=== PATIENT | female | born 1965 | race Caucasian/White ===

== ENCOUNTER 2019-07-30 08:15 | Inpatient (IN) | payer BC ==
[2019-07-30] VITALS (14 sets, daily range): BP systolic 124–155; BP diastolic 70–96
[~2019-07-30] VITALS: Ht 165.1 cm; Wt 58.1 kg
--- NOTE | 2019-07-30 08:26 | PHYS DOC ---
Past History Past Medical History: Depression, High Cholesterol, Hypertension Additional Past Medical Histor: Chronic back pain, Scoliosis, hx of Suicide attempt in Past Medical History Limited due to altered mental status. Past Surgical History: Cholecystectomy, Hysterectomy Additional Past Surgical Histo: Breast augmentation, nerve ablations in back Past Surgical History Limited due to altered mental status. Smoking: Cigarettes (socially), Less than 1pk/day Alcohol Use: Occasionally (socially) Drug Use: None Social History Limited due to altered mental status. Adult General Chief Complaint Chief Complaint: Altered mental status/Overdose HPI HPI 53-year-old female presents with her with report of altered mental status this morning. Spouse reports waking this AM and finding patient was not in bed. Reports finding patient out in the garage "passed out" in the passenger side of his vehicle. Reports she was difficult to arouse and was altered. Reports finding empty Flexeril bottle on kitchen counter and another one in the living room. Patient has chronic back pain and takes "morphine", "Vicodin", and Flexeril for her back. Empty prescription bottles are from 05/06/19 and 07/28/19 and both are 10 mg Flexeril tablets for which patient was prescribed 90 tablets and can take one tablet 3 times daily as needed. Spouse denies finding the other medications or any other medications that patient might have taken. Reports she was drinking "tequila shots" last night. Spouse reports last seen normal at approximately 2300 last night. Reports he did receive a text from his mother in law around midnight last night reporting some concern that "something was wrong" , but he didn't see the text until this AM. Spouse reports patient has a history of depression and a prior suicide attempt in the . Reports patient has seemed more depressed recently and has some increased life stressors. Reports recently moved to [place] approximately 2 years ago. Patient does not work and doesn't really have any friends out here. Spouse reports he is gone 70% of the time for work. Spouse does report hx of recent ablation therapy to patient's back with pain specialist an [place] on . He reports that is who prescribes her medications. History of present illness limited due to patient's altered mental status. Majority of HPI and history obtained from spouse. NO prior records per [facility] review for comparison. Review of Systems Review of Systems Constitutional: Denies fever or chills GI: Denies vomiting Review of systems limited due to patient's altered mental status Current Medications Current Medications Current Medications Medications (Trade) Dose Ordered Sig/Christina Start Time Stop Time Status Last Admin Dose Admin Sodium Chloride 1,000 ml @ 1,000 mls/hr 1X ONCE 07/30/19 08:30 07/30/19 09:29 UNV Physical Exam Physical Exam Constitutional: Well developed, well nourished, confused, non-toxic appearance HENT: Normocephalic, atraumatic, oropharynx moist Eyes: PERRL, EOMI, conjunctiva normal, no discharge, horizontal nystagmus noted Neck: Normal range of motion, no tenderness, supple Cardiovascular: Heart rate normal, regular rhythm Lungs & Thorax: Bilateral breath sounds clear to auscultation, no wheezing Abdomen: Soft, no tenderness Skin: Warm, dry, no erythema, no rash, old ecchymosis noted to bilateral AC regions Extremities: No tenderness, ROM intact, no edema, moving all extremities Neurologic: Obtunded, GCS 11 (eye4 verbal2 motor5), no focal deficits noted Psychologic: Unable to fully obtain, judgement abnormal EKG EKG @0821 NSR at 98bpm, NO ST elevation, QRS 76ms, QT/QTc 394/505ms Radiology/Procedures Radiology/Procedures [] Course & Med Decision Making Course & Med Decision Making Pertinent Lab studies reviewed. (See chart for details) Patient presents with altered mental status and history of possibly taking Flexeril 10 mg tablets which were recently filled on 07/28/2019 90 tabs. Another empty bottle of Flexeril also found but was filled in April 2019. GCS 11. EKG obtained. Labs obtained and posted to chart. IV fluid hydration given. Poison control notified and recommend supportive care and monitoring for next 24 hours. Patient requiring admission for further evaluation and treatment. Discussed with Dr. Dawson (hospitalist) who is in agreement with admission. Discussed findings and plan with spouse, who acknowledges understanding and agreement. Dragon Disclaimer Dragon Disclaimer This electronic medical record was generated, in whole or in part, using a voice recognition dictation system. Departure Departure: Impression: Primary Impression: Suicide attempt Additional Impression: Overdose Disposition: ADMITTED INPATIENT Admitting Physician: Ara Dawson Condition: GUARDED Critical Care Time Critical care time was 30 minutes which includes time at bedside, spent in discussion of patient's care with specialists and/or family members, with interpretation of laboratory and/or radiological studies and is exclusive of procedures. Problem Qualifiers Additional Impression: Overdose Encounter type: initial encounter Injury intent: intentional self-harm Qualified Codes: T50.902A - Poisoning by unspecified drugs, medicaments and biological substances, intentional self-harm, initial encounter RAFA HAYES DO Jul 30, 2019 08:25
[2019-07-30] MEDS ORDERED: IV NORMAL SALINE 1,000ML 1,000 ML IV ONE (08:30)
[2019-07-30 08:47] LABS: BASO % 0 % (0-3); EOS % 0 % (0-3); HEMOGLOBIN 14.3 g/dL (12.0-15.5); LYMPH # 1.1 x10^3/uL (1.0-4.8); LYMPH % 15 % (24-48); MEAN CORPUSCULAR HEMOGLOBIN 32 pg (25-35); MEAN CORPUSCULAR HGB CONC 34 g/dL (31-37); MEAN CORPUSCULAR VOLUME 92 fL (79-100); MONO # 0.4 x10^3/uL (0.0-1.1); MONO % 5 % (0-9); NEUT % 80 % (31-73); PLATELET COUNT 299 x10^3/uL (140-400); RED BLOOD COUNT 4.55 x10^6/uL (3.50-5.40); RED CELL DISTRIBUTION WIDTH 13.5 % (11.5-14.5); WHITE BLOOD COUNT 7.6 x10^3/uL (4.0-11.0)
[2019-07-30 09:08] LABS: ALBUMIN 4.4 g/dL (3.4-5.0); ALBUMIN/GLOBULIN RATIO 1.1 (1.0-1.7); CALCIUM 9.5 mg/dL (8.5-10.1); CREATININE 0.8 mg/dL (0.6-1.0); GFR 75.6; MAGNESIUM 2.2 mg/dL (1.8-2.4); TOTAL BILIRUBIN 0.3 mg/dL (0.2-1.0); TOTAL PROTEIN 8.5 g/dL (6.4-8.2)
[2019-07-30 09:09] LABS: ACETAMIN < 2.0 mcg/mL (10-30); ETHANOL < 10 mg/dL (0-10); SALIC 2.4 mg/dL (2.8-20.0)
[2019-07-30 09:20] LABS: BILIRUBIN,URINE NEG (NEG); CLARITY,URINE HAZY; COLOR,URINE YELLOW; GLUCOSE,URINE NEG (NEG); UROBILINOGEN,URINE 0.2 mg/dL (0.2 mg/dL)
[2019-07-30 09:21] LABS: AMORPHOUS SEDIMENT,UR PRESENT /HPF; BACTERIA,URINE 0 /HPF (0-FEW); NITRITE,URINE NEG (NEG); RBC,URINE 0 /HPF (0-2); SQUAMOUS EPITHELIAL CELL,UR OCC /LPF; WBC,URINE 0 /HPF (0-4)
[2019-07-30 09:26] LABS: BARBITURATES NEG (NEG); BENZODIAZEPINES NEG (NEG); CANNABINOIDS NEG (NEG); COCAINE NEG (NEG); METHADONE NEG (NEG); OPIATES POS (NEG); PHENCYCLIDINE NEG (NEG)
[2019-07-30 09:29] LABS: AMPHETAMINE/METHAMPHETAMINE NEG (NEG)
[2019-07-30] MEDS ORDERED: ONDANSETRON PF 4 MG/2 ML VIAL. IV PRN (09:45)
[2019-07-30] MEDS ORDERED: MVI, ADULT NO.4 WITH VIT K 10 ML, FOLIC ACID SYRINGE for ER 1 MG, THIAMINE INJ 100 MG i... IV ONE ×4 (10:00)
[2019-07-30] MEDS ORDERED: CYCL-331 PO (11:39)
[2019-07-30] MEDS ORDERED: HYDR-52 PO (11:39)
[2019-07-30] MEDS ORDERED: MORP-16 PO (11:39)
[2019-07-30] MEDS ORDERED: MELO15TA23 PO (11:39)
[2019-07-30] MEDS ORDERED: DULO60CA98 PO (11:39)
[2019-07-30] MEDS ORDERED: BUPR150T11 PO (11:39)
[2019-07-30] MEDS ORDERED: MAGNESIUM SULFATE 2GM 50 ML IV ONE (14:00)
[2019-07-30] MEDS: IV NORMAL SALINE 1,000ML 1,000 ML IV SCH ×2 (14:08→20:25)
--- NOTE | 2019-07-30 14:49 | HP ---
ADMIT DATE: 07/30/2019 HISTORY OF PRESENT ILLNESS: The patient is a 53-year-old female patient who presented to the Emergency Room with reports of altered mental status this morning. Her reported waking this morning and finding the patient was not in bed. He found her in the garage, passed out in the passenger side of his vehicle. She was difficult to arouse and was altered. He found also an empty Flexeril bottle on kitchen counter and another one in the living room. The patient is known to have chronic back pain and takes morphine, Vicodin, and Flexeril for her back. Empty prescription bottles are from 05/06/2019 and 07/28/2019, and both are 10 mg Flexeril tablets for which the patient was prescribed 90 tablets and can take 1 tablet 3 times a day as needed. The denied finding any other medications, patient that might have taken. He said she was drinking also tequila shots last night. She was last seen as normal at around 2300 last night. The reported that he did receive a text from his [id number] around midnight last night reporting some concern that something was wrong, but he did not see the text until this morning. The reports the patient has a history of depression with prior suicidal attempt in 1989. He reports the patient seemed more depressed recently and has some increased life stressors. She recently moved to [place] approximately 2 years ago. She does not work and does not really have any friends out here. He stated that he has gone 70% of time for work. She apparently has recently had an ablation therapy for the patient's back with pain specialist in [place]. On , she was evaluated in the Emergency Room, apparently was obtunded with a Diamond coma scale of 11 with no obvious focal deficit and was admitted to ICU for close observation. Her initial EKG showed that she was in sinus rhythm with a heart rate of 98 per minute, no ST segment elevation. Her QRS complex was 76 milliseconds, QT interval was 505 millisecond. Her chest x-ray and her lab work were unremarkable. Urinalysis was unremarkable and toxic screen was positive for opiates as well as alcohol, although the blood alcohol level was less than 10 and was admitted with suicidal attempt with an overdose of Flexeril and perhaps morphine as well as alcohol. We did contact the Poison Control Center who recommended treating her with bicarb if her corrected QT interval is more than 500 milliseconds and to start bicarb drip, if the QRS complex is more than 100 milliseconds. PAST MEDICAL HISTORY: Significant for depression, hyperlipidemia, hypertension, chronic back pain, scoliosis, apparently has a history of suicide attempt in 1989. PAST SURGICAL HISTORY: Significant for cholecystectomy, hysterectomy, breast augmentation surgery, as well as nerve ablation of the back recently. ALLERGIES: She is allergic to GABAPENTIN. MEDICATIONS: She is currently on cyclobenzaprine 10 mg 3 times a day, meloxicam 15 mg daily, hydrocodone/APAP 10/325 one tablet every 6 hours. She is also on morphine sulfate extended release 30 mg twice a day and Wellbutrin 150 mg once a day and duloxetine 60 mg twice a day. FAMILY HISTORY: Unremarkable. SOCIAL HISTORY: She is and lives with her . She apparently smokes 1 pack a day and drinks alcohol occasionally and does not use any drugs. REVIEW OF SYSTEMS: Obviously unobtainable. PHYSICAL EXAMINATION: GENERAL: On arrival to the Emergency Room, the patient was obtunded, does open her eyes and moves limbs spontaneously without any obvious lateralizing sign. There was no pallor, jaundice, or cyanosis. No lymphadenopathy, no thyromegaly. No jugular venous distention. No lower limb edema. VITAL SIGNS: Her heart rate was 95, blood pressure was 142/89, temperature was 97.4, respiratory rate was 15, and oxygen saturation was 100%. HEAD, EYES, EARS, NOSE, AND THROAT: Normocephalic, atraumatic. NECK: Supple. HEART: Showed normal first and second heart sounds. No gallop or murmur. CHEST: Clear to auscultation. No crepitation or rhonchi. ABDOMEN: Distended, soft, nontender. NEUROLOGIC: She is obtunded, but all her cranial nerves seem to be grossly intact. EXTREMITIES: She moves extremities spontaneously; however, she is very restless, agitated, and required wrist restraints. LABORATORY DATA: Her lab work this morning showed a white cell count of 7600, hemoglobin 14, hematocrit 42, MCV 92, and platelet count of 299,000, with normal manual differential. Her serum sodium is 142, potassium 4, chloride 103, bicarbonate 28, anion gap of 11, BUN 20, creatinine 0.8, estimated GFR was 76 mL per minute. Her glucose was 113, lactic acid was 1. Calcium was 9.5, magnesium was 2.2. Total bilirubin, AST, ALT, alkaline phosphatase were normal. Her ammonia was less than 10 and CK was 95. Total protein was 8.5 and albumin was 4.4. Her prothrombin time, INR, and aPTT were normal. Urinalysis was unremarkable and toxic screen was positive for opiates as well as alcohol. ASSESSMENT AND PLAN: So, in summary, this is a 53-year-old, female patient who was admitted with suicidal attempt and overdose of cyclobenzaprine. She is also on morphine and has been drinking tequila shots. She has multiple other medical problems including hypertension, hyperlipidemia, depression, and chronic back pain. The plan is to continue with IV fluid, continue with perhaps alcohol withdrawal protocol. I did speak with the Poison Control Center and their recommendation was to treat her with magnesium sulfate 2 grams IV if the QT interval is more than 500 and do bicarbonate drip if the QRS complex was more than 100 milliseconds. Obviously when she wakes up, we will consult Dr. Robles to see her and she probably needs some inpatient psychiatric treatment. SHELLY FLORES MD DR: NBA/bradley JOB#: [id number] / [id number]
[2019-07-30] MEDS ORDERED: PHYSOSTIGMINE 2 MG/2 ML AMPUL. IV ONE (18:15)
[2019-07-30] MEDS ORDERED: PHYSOSTIGMINE 1 MG/ML IV ONE (18:15)
[2019-07-30 18:16] LABS: BASO % 0 % (0-3); EOS % 0 % (0-3); HEMATOCRIT 37.6 % (36.0-47.0); HEMOGLOBIN 12.2 g/dL (12.0-15.5); LYMPH % 9 % (24-48); MEAN CORPUSCULAR HEMOGLOBIN 30 pg (25-35); MEAN CORPUSCULAR HGB CONC 33 g/dL (31-37); MEAN CORPUSCULAR VOLUME 93 fL (79-100); MONO # 0.7 x10^3/uL (0.0-1.1); MONO % 5 % (0-9); NEUT # 10.4 x10^3uL (1.8-7.7); NEUT % 86 % (31-73); PLATELET COUNT 268 x10^3/uL (140-400); RED BLOOD COUNT 4.05 x10^6/uL (3.50-5.40); RED CELL DISTRIBUTION WIDTH 13.4 % (11.5-14.5); WHITE BLOOD COUNT 12.2 x10^3/uL (4.0-11.0)
[2019-07-30 18:35] LABS: ALBUMIN 3.8 g/dL (3.4-5.0); ALBUMIN/GLOBULIN RATIO 1.1 (1.0-1.7); CALCIUM 8.4 mg/dL (8.5-10.1); CREATININE 0.8 mg/dL (0.6-1.0); GFR 75.6; MAGNESIUM 2.7 mg/dL (1.8-2.4); POTASSIUM 3.7 mmol/L (3.5-5.1); TOTAL BILIRUBIN 0.4 mg/dL (0.2-1.0); TOTAL PROTEIN 7.2 g/dL (6.4-8.2)
--- NOTE | 2019-07-30 20:33 | EKG ---
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
--- NOTE | 2019-07-30 20:50 | EKG ---
[address] [address] Test Date: 2019-07-30 Test Time: 20:43:13 Pat Name: ABBY GREEN Department: Room: [facility]02 1 Gender: F Quality Liaison: : 1965 Requested By: SHELLY FLORES Order Number: [id number] Reading MD: Measurements Intervals [place] Rate: 105 P: 76 TN: 152 QRS: -5 QRSD: 78 T: 234 QT: 346 QTc: 461 Interpretive Statements SINUS TACHYCARDIA LEFTWARD AXIS OTHERWISE NORMAL ECG RI6.02 No previous ECG available for comparison
--- NOTE | 2019-07-30 22:53 | PDOC ---
Exam Note: David Note: Please also refer to the separate dictated note~for this date of service dictated separately.~Patient seen individually. Discussed the patient with Nursing staff reviewed the chart.~Reviewed interim history and current functioning. Reviewed vital signs,~Labs/ Radiology~and current medications noted below. Continue current treatment with the changes noted in the dictated addendum note Assessment: Vital Signs/I&O: Vital Signs Date Time Temp Pulse Resp B/P (MAP) Pulse Ox O2 Delivery O2 Flow Rate FiO2 07/30/19 22:14 99 20 07/30/19 22:11 98.9 142/90 (107) 98 Room Air Labs: Laboratory Tests Test 07/30/19 08:30 07/30/19 18:00 07/30/19 18:04 White Blood Count 7.6 x10^3/uL (4.0-11.0) 12.2 x10^3/uL (4.0-11.0) H Red Blood Count 4.55 x10^6/uL (3.50-5.40) 4.05 x10^6/uL (3.50-5.40) Hemoglobin 14.3 g/dL (12.0-15.5) 12.2 g/dL (12.0-15.5) Hematocrit 42.0 % (36.0-47.0) 37.6 % (36.0-47.0) Mean Corpuscular Volume 92 fL (79-100) 93 fL (79-100) Mean Corpuscular Hemoglobin 32 pg (25-35) 30 pg (25-35) Mean Corpuscular Hemoglobin Concent 34 g/dL (31-37) 33 g/dL (31-37) Red Cell Distribution Width 13.5 % (11.5-14.5) 13.4 % (11.5-14.5) Platelet Count 299 x10^3/uL (140-400) 268 x10^3/uL (140-400) Neutrophils (%) (Auto) 80 % (31-73) H 86 % (31-73) H Lymphocytes (%) (Auto) 15 % (24-48) L 9 % (24-48) L Monocytes (%) (Auto) 5 % (0-9) 5 % (0-9) Eosinophils (%) (Auto) 0 % (0-3) 0 % (0-3) Basophils (%) (Auto) 0 % (0-3) 0 % (0-3) Neutrophils # (Auto) 6.0 x10^3uL (1.8-7.7) 10.4 x10^3uL (1.8-7.7) H Lymphocytes # (Auto) 1.1 x10^3/uL (1.0-4.8) 1.0 x10^3/uL (1.0-4.8) Monocytes # (Auto) 0.4 x10^3/uL (0.0-1.1) 0.7 x10^3/uL (0.0-1.1) Eosinophils # (Auto) 0.0 x10^3/uL (0.0-0.7) 0.0 x10^3/uL (0.0-0.7) Basophils # (Auto) 0.0 x10^3/uL (0.0-0.2) 0.0 x10^3/uL (0.0-0.2) Prothrombin Time 9.8 SEC (9.4-11.4) Prothrombin Time INR 0.9 (0.9-1.1) Activated Partial Thromboplast Time 26 SEC (23-33) Urine Collection Type U cath Urine Color Yellow Urine Clarity Hazy Urine pH 5.0 Urine Specific [place] 1.010 Urine Protein Neg (NEG-TRACE) Urine Glucose (UA) Neg mg/dL (NEG) Urine Ketones (Stick) Neg mg/dL (NEG) Urine Blood Neg (NEG) Urine Nitrite Neg (NEG) Urine Bilirubin Neg (NEG) Urine Urobilinogen Dipstick 0.2 mg/dL (0.2 mg/dL) Urine Leukocyte Esterase Neg (NEG) Urine RBC 0 /HPF (0-2) Urine WBC 0 /HPF (0-4) Urine Squamous Epithelial Cells Occ /LPF Urine Amorphous Sediment Present /HPF Urine Bacteria 0 /HPF (0-FEW) Urine Mucus Slight /LPF Sodium Level 142 mmol/L (136-145) 146 mmol/L (136-145) H Potassium Level 4.0 mmol/L (3.5-5.1) 3.7 mmol/L (3.5-5.1) Chloride Level 103 mmol/L (98-107) 109 mmol/L (98-107) H Carbon Dioxide Level 28 mmol/L (21-32) 24 mmol/L (21-32) Anion Gap 11 (6-14) 13 (6-14) Blood Urea Nitrogen 20 mg/dL (7-20) 13 mg/dL (7-20) Creatinine 0.8 mg/dL (0.6-1.0) 0.8 mg/dL (0.6-1.0) Estimated GFR (Cockcroft-Gault) 75.6 75.6 BUN/Creatinine Ratio 25 (6-20) H 16 (6-20) Glucose Level 113 mg/dL (70-99) H 108 mg/dL (70-99) H Lactic Acid Level 1.0 mmol/L (0.4-2.0) Calcium Level 9.5 mg/dL (8.5-10.1) 8.4 mg/dL (8.5-10.1) L Magnesium Level 2.2 mg/dL (1.8-2.4) 2.7 mg/dL (1.8-2.4) H Total Bilirubin 0.3 mg/dL (0.2-1.0) 0.4 mg/dL (0.2-1.0) Aspartate Amino Transferase (AST) 20 U/L (15-37) 19 U/L (15-37) Alanine Aminotransferase (ALT) 22 U/L (14-59) 18 U/L (14-59) Alkaline Phosphatase 76 U/L (46-116) 64 U/L (46-116) Ammonia < 10 mcmol/L (11-34) L Creatine Kinase 95 U/L (26-192) 109 U/L (26-192) Total Protein 8.5 g/dL (6.4-8.2) H 7.2 g/dL (6.4-8.2) Albumin 4.4 g/dL (3.4-5.0) 3.8 g/dL (3.4-5.0) Albumin/Globulin Ratio 1.1 (1.0-1.7) 1.1 (1.0-1.7) Salicylates Level 2.4 mg/dL (2.8-20.0) L Salicylate Last Dose Date Unknown Salicylate Last Dose Time Unknown Urine Opiates Screen Pos (NEG) Urine Methadone Screen Neg (NEG) Acetaminophen Level < 2.0 mcg/mL (10-30) L Acetaminophen Last Dose Date Unknown Acetaminophen Last Dose Time Unknown Urine Barbiturates Neg (NEG) Urine Phencyclidine Screen Neg (NEG) Urine Amphetamine/Methamphetamine Neg (NEG) Urine Benzodiazepines Screen Neg (NEG) Urine Cocaine Screen Neg (NEG) Urine Cannabinoids Screen Neg (NEG) Ethyl Alcohol Level < 10 mg/dL (0-10) Urine Ethyl Alcohol Pos (NEG) Current Medications: Meds: Current Medications Medications (Trade) Dose Ordered Sig/Christina Route PRN Reason Start Time Stop Time Status Last Admin Dose Admin Sodium Chloride 1,000 ml @ 1,000 mls/hr 1X ONCE IV 07/30/19 08:30 07/30/19 09:29 DC 07/30/19 08:30 Multivitamins/ Minerals 10 ml/ Folic Acid 1 mg/ Thiamine HCl 100 mg/Sodium Chloride 1,011.1 ml @ 1,000 mls/ hr 1X ONCE IV 07/30/19 10:00 07/30/19 11:00 DC 07/30/19 10:00 Sodium Chloride 1,000 ml @ 100 mls/hr Q10H IV 07/30/19 12:15 07/30/19 20:25 Magnesium Sulfate 50 ml @ 25 mls/hr 1X ONCE IV 07/30/19 14:00 07/30/19 15:59 DC 07/30/19 14:08 Lorazepam (Ativan Inj) 1 mg PRN Q2HR PRN IVP ANXIETY / AGITATION 07/30/19 18:30 07/30/19 21:31 DC 07/30/19 20:25 Lorazepam (Ativan Inj) 2 mg PRN Q2HR PRN IVP ANXIETY / AGITATION 07/30/19 21:30 07/30/19 22:14 I have reviewed the current psychotropics carefully including drug interactions. Risk benefit ratio favors no change other than as noted in my dictated progress note. Diagnosis: Problems: (1) Overdose (2) Suicide attempt GENNY AMAYA MD Jul 30, 2019 22:53
[2019-07-31] VITALS (23 sets, daily range): BP systolic 120–158; BP diastolic 77–106
[2019-07-31] MEDS: IV NORMAL SALINE 1,000ML 1,000 ML IV SCH ×3 (01:25→19:03)
--- NOTE | 2019-07-31 04:04 | EKG ---
[address] [address] Test Date: 2019-07-31 Test Time: 00:34:21 Pat Name: ABBY GREEN Department: Room: [facility] 1 Gender: F Injection Molding Machine Operator: : 1965 Requested By: SHELLY FLORES Order Number: [id number] Reading MD: Measurements Intervals [place] Rate: 98 P: 57 DE: 154 QRS: -16 QRSD: 80 T: -38 QT: 394 QTc: 505 Interpretive Statements SINUS RHYTHM LEFTWARD AXIS PROLONGED QT NO SPECIFIC ECG ABNORMALITIES RI6.02 No previous ECG available for comparison
--- NOTE | 2019-07-31 04:05 | EKG ---
[address] [address] Test Date: 2019-07-30 Test Time: 22:28:26 Pat Name: ABBY GREEN Department: Room: [facility]02 1 Gender: F Cross Tie Turner: : 1965 Requested By: SHELLY FLORES Order Number: [id number] Reading MD: Measurements Intervals [place] Rate: 98 P: 64 DE: 154 QRS: -9 QRSD: 80 T: 36 QT: 402 QTc: 515 Interpretive Statements SINUS RHYTHM LEFTWARD AXIS PROLONGED QT NO SPECIFIC ECG ABNORMALITIES RI6.02 No previous ECG available for comparison
--- NOTE | 2019-07-31 04:50 | EKG ---
[address] [address] Test Date: 2019-07-30 Test Time: 22:27:30 Pat Name: ABBY GREEN Department: Room: ICU02 1 Gender: F Manager Mass: : 1965 Requested By: SHELLY FLORES Order Number: [id number] Reading MD: Measurements Intervals [place] Rate: 100 P: 0 [place]: 144 QRS: -12 QRSD: 78 T: -26 QT: 304 QTc: 395 Interpretive Statements SINUS RHYTHM VENTRICULAR PREMATURE COMPLEX(ES) LEFTWARD AXIS ST & T ABNORMALITY, CONSIDER ANTEROLATERAL ISCHEMIA OR LEFT VENTRICULAR STRAIN INFEROLATERAL ISCHEMIA OR LEFT VENTRICULAR STRAIN ABNORMAL ECG RI6.02 No previous ECG available for comparison
--- NOTE | 2019-07-31 05:20 | EKG ---
[address] [address] Test Date: 2019-07-31 Test Time: 05:13:07 Pat Name: ABBY GREEN Department: Room: [facility]02 1 Gender: F Entry Level Sales Representative: : 1965 Requested By: SHELLY FLORES Order Number: [id number] Reading MD: Measurements Intervals [place] Rate: 95 P: 90 [place]: 148 QRS: -1 QRSD: 78 T: 39 QT: 384 QTc: 486 Interpretive Statements SINUS RHYTHM ATRIAL PREMATURE COMPLEX(ES) LEFTWARD AXIS PROLONGED QT NO SPECIFIC ECG ABNORMALITIES RI6.02 No previous ECG available for comparison
[2019-07-31 06:47] LABS: HEMATOCRIT 37.2 % (36.0-47.0); HEMOGLOBIN 12.4 g/dL (12.0-15.5); RED BLOOD COUNT 3.97 x10^6/uL (3.50-5.40); RED CELL DISTRIBUTION WIDTH 13.6 % (11.5-14.5); WHITE BLOOD COUNT 9.1 x10^3/uL (4.0-11.0)
[2019-07-31 07:02] LABS: ALBUMIN 3.5 g/dL (3.4-5.0); ALBUMIN/GLOBULIN RATIO 1.2 (1.0-1.7); CALCIUM 8.1 mg/dL (8.5-10.1); CREATININE 0.7 mg/dL (0.6-1.0); GFR 88.2; MAGNESIUM 2.5 mg/dL (1.8-2.4); TOTAL BILIRUBIN 0.3 mg/dL (0.2-1.0); TOTAL PROTEIN 6.4 g/dL (6.4-8.2)
[2019-08-01] VITALS (13 sets, daily range): BP systolic 112–149; BP diastolic 74–97
[2019-08-01 06:50] LABS: CALCIUM 8.7 mg/dL (8.5-10.1); CREATININE 0.8 mg/dL (0.6-1.0); GFR 75.6; POTASSIUM 3.6 mmol/L (3.5-5.1)
[2019-08-01] MEDS: IV NORMAL SALINE 1,000ML 1,000 ML IV SCH ×2 (10:00→22:43)
--- NOTE | 2019-08-01 13:01 | PN ---
DATE: 07/31/2019 SUBJECTIVE: The patient continued to be extremely lethargic and sleepy. She was treated with Ativan, received a total of 8 mg overnight. The last one was given at 5:00 this morning. Her most recent EKG at around 5:00 this morning showed her corrected QT interval of 486. PHYSICAL EXAMINATION: GENERAL: When I examined her this afternoon, she looked well and was clearly in no apparent respiratory distress. No pallor, jaundice, cyanosis or thyromegaly. No jugular venous distention. No lower limb edema. VITAL SIGNS: Her heart rate was 100, blood pressure 150/77, temperature was 37 degrees centigrade, respiratory rate 20, and oxygen saturation was 95% on room air. The rest of clinical exam stable, has not really changed. Her intake over the last 24 hours was 2000, output was 2150. LABORATORY WORK: Showed a white cell count of 9100, hemoglobin 12.4, hematocrit ____, MCV 94 and platelet count of 206,000. Her chemistry showed a serum sodium 143, potassium 4, chloride 109, bicarbonate 23, anion gap of 11, BUN 9, creatinine 0.7, estimated GFR was 88 mL per minute. Her glucose was ____, calcium was 8.1, normal. ASSESSMENT: An overdose of cyclobenzaprine ____ 90 tablets for suicide attempt. Other medical problems include hypertension, hyperlipidemia, depression, chronic back pain. PLAN: To continue with IV fluid. Once the patient is more awake, alert, we will consult the psychiatrist and arrange for inpatient psychiatric stabilization and treatment. SHELLY FLORES MD DR: NBA/bradley JOB#: [id number] / [id number]
[2019-08-01] MEDS: ENOXAPARIN 40 MG/0.4 ML SYRINGE. SQ SCH (16:24)
[2019-08-02] VITALS (10 sets, daily range): BP systolic 104–140; BP diastolic 67–94
--- NOTE | 2019-08-02 02:53 | PN ---
DATE: SUBJECTIVE: The patient is resting flat, sleeping comfortably, in no apparent distress. She is sleeping comfortably as she was given Ativan this afternoon, she was crying, although she managed to get out and used a bedside commode. Her Lott catheter was removed. She managed to eat some jello and drink ____ little fluid; however, she continued to be very confused and she is not awake enough or lucid enough to be seen by psychiatrist for evaluation and perhaps transfer to inpatient psychiatric treatment. PHYSICAL EXAMINATION: GENERAL: When I saw her this afternoon, she looked pale, no jaundice, cyanosis or thyromegaly. No jugular venous distention. No lower limb edema. VITAL SIGNS: Her heart rate was 96, blood pressure 141/97, temperature was 97.5, respiratory rate was 24, and oxygen saturation was 99% on room air. HEAD, EYES, EARS, NOSE AND THROAT: Normocephalic, atraumatic. NECK: Supple. HEART: Showed normal first and second heart sounds. No gallop, rub or murmur. CHEST: Clear to auscultation. No crepitation or rhonchi. ABDOMEN: Distended, soft, nontender. No guarding or rigidity. No organomegaly. All hernial orifice intact. Bowel sounds normal. NEUROLOGIC: She is drowsy and she was given Ativan ____. She moves her extremities spontaneously and she managed to get out of bed to bedside commode. Her intake over the last 24 hours was 2000, output was 2150. LABORATORY DATA: As of this morning, her serum sodium 141, potassium 3.6, chloride 108, bicarbonate 19, anion gap of 14, BUN 10, creatinine 0.8, estimated GFR was 75 mL per minute. Her glucose was 78, calcium was 8.7. Her CK was 252. Her white cell count was 9000, hemoglobin 12, hematocrit 37, MCV 94 and platelet count was 26,000. ASSESSMENT: Suicidal attempt by an overdose on cyclobenzaprine. She took 90 tablets. She has multiple other medical problems including hypertension, hyperlipidemia, severe depression and chronic back pain. PLAN: Continue with IV fluid, continue with Ativan for agitation or restlessness. SHELLY FLORES MD DR: NBA/bradley JOB#: [id number] / [id number]
[2019-08-02 06:53] LABS: CALCIUM 8.5 mg/dL (8.5-10.1); CREATININE 0.9 mg/dL (0.6-1.0)
[2019-08-02] MEDS: POTASSIUM CHLORIDE 20 MEQ TABLET.ER. PO SCH ×2 (08:42→10:03)
[2019-08-02] MEDS ORDERED: MELOXICAM 15 MG TABLET. PO SCH (10:00)
[2019-08-02] MEDS ORDERED: buPROPion SR 150 MG TABLET.SA PO SCH (10:00)
[2019-08-02] MEDS: HYDROcodone/APAP 10/325 1 TAB TABLET PO PRN ×3 (10:04→20:50)
[2019-08-02] MEDS: DULoxetine HCL 60 MG CAPSULE.DR PO SCH ×2 (10:04→20:49)
[2019-08-02] MEDS: IV NORMAL SALINE 1,000ML 1,000 ML IV SCH ×2 (10:04→15:07)
[2019-08-02 13:24] LABS: CALCIUM 8.5 mg/dL (8.5-10.1); GFR 58.5; POTASSIUM 3.6 mmol/L (3.5-5.1)
[2019-08-02] MEDS: ENOXAPARIN 40 MG/0.4 ML SYRINGE. SQ SCH (15:00)
[2019-08-02] MEDS ORDERED: CETIRIZINE HCL 10 MG TABLET PO PRN (15:45)
[2019-08-02] MEDS ORDERED: BENZOCAINE/MENTHOL LOZNGE 18'S BOX. PO PRN (15:45)
--- NOTE | 2019-08-02 17:17 | PN ---
DATE: 08/02/2019 SUBJECTIVE: The patient is a 53-year-old female patient who was admitted with an overdose. She took 90 tablets of the 10 mg Flexeril in suicidal attempt. She was admitted on 07/30/2019 and we have treated her as per [facility], monitoring her corrected QT interval and QRS complex. She did receive magnesium sulfate intravenously as her corrected QT interval was more than 500. However, QRS complex never exceeded 80 milliseconds. She has been now awake, alert and lucid, has been up and about, has managed to eat her breakfast and lunch, had a shower and she is medically stable. PHYSICAL EXAMINATION: GENERAL: When I saw her this afternoon, she was resting slightly propped up in bed, in no apparent distress, awake, alert, responding appropriately. VITAL SIGNS: Her heart rate was 97, blood pressure was 113/67, temperature was 98.6, respiratory rate was 16, and oxygen saturation was 98% on room air. HEAD, EYES, EARS, NOSE AND THROAT: Showed that she is normocephalic, atraumatic. NECK: Supple. HEART: Showed normal first and second heart sounds. No gallop or murmur. CHEST: Clear to auscultation. No crepitation or rhonchi. ABDOMEN: Slightly distended, soft, nontender. No guarding or rigidity. No organomegaly. All hernial orifice intact. Bowel sounds normal. NEUROLOGIC: She is awake, alert, oriented to time, place and person. All cranial nerves intact. She moves extremities without difficulty. She ambulates without assistance or assistive devices. LABORATORY DATA: Showed a white cell count of 9100, hemoglobin 12, hematocrit 37, MCV 94 and platelet count 206,000. Her chemistry this morning showed a serum sodium 142, potassium 3.6, chloride 110, bicarbonate 20, anion gap of 12, BUN 15, creatinine was 1. Estimated GFR was 58 mL per minute. Her glucose 156, calcium was 8.4. Her total protein was 6.4, albumin 3.5. Her serum triglycerides 112, total cholesterol 199, LDL was 132, VLDL was 22, HDL was 45 and the ratio was 4. Her prothrombin time, INR and aPTT were normal. Urinalysis was essentially unremarkable. Toxic screen was positive for opiates. ASSESSMENT AND PLAN: The patient is medically stable. All her lab works are well within normal range. She is awake, alert, oriented to time, place and person and is medically stable for transfer for inpatient psychiatric treatment. SHELLY FLORES MD DR: NBA/bradley JOB#: [id number] / [id number]
[2019-08-02] MEDS ORDERED: CETI10TA16 PO (20:11)
[2019-08-02] MEDS ORDERED: BENZ1LOZ48 PO (20:13)
[2019-08-02] MEDS ORDERED: LOPERAMIDE 2 MG CAPSULE PO PRN (20:30)
== END 2019-08-02 22:07 | DRG 918 ==
LOC: ER 08:15 → ICU 10:36
PROVIDERS: ADMIT Internal Medicine; ATTEND Internal Medicine
DX: T48.1X2A Poisoning by skeletal muscle relaxants [neuromuscular blocking agents], intentional self-harm, initial encounter (principal); T40.602A Poisoning by unspecified narcotics, intentional self-harm, initial encounter; I10 Essential (primary) hypertension; G89.29 Other chronic pain; F32.9 Major depressive disorder, single episode, unspecified; E78.5 Hyperlipidemia, unspecified; M54.9 Dorsalgia, unspecified; E78.00 Pure hypercholesterolemia, unspecified; F17.210 Nicotine dependence, cigarettes, uncomplicated; M41.9 Scoliosis, unspecified; Z79.891 Long term (current) use of opiate analgesic; Z90.710 Acquired absence of both cervix and uterus; Z91.5 Personal history of self-harm; Y92.89 Other specified places as the place of occurrence of the external cause
CPT/HCPCS: 36415; 51702; 80048; 80053; 80061; 80307; 80329; 81001; 82140; 82550; 83605; 83735; 85025; 85027; 85610; 85730; 93005; 96361; 96365; G0480; J1650; J2060; J3475; 82003; 99291-25; J7030